=== PATIENT | male | born 1960 | race African-American/Black ===

== ENCOUNTER 2020-06-02 17:54 | Emergency (ER) | payer OTHER ==
[2020-06-02] MEDS ORDERED: Ketorolac Tromethamine 30 MG/ML VIAL ONE (20:07)
== END 2020-06-02 20:24 ==
LOC: ERS 17:54
DX: M25.551 Pain in right hip (principal); E11.9 Type 2 diabetes mellitus without complications; I10 Essential (primary) hypertension; F17.210 Nicotine dependence, cigarettes, uncomplicated; W18.2XXA Fall in (into) shower or empty bathtub, initial encounter
CPT/HCPCS: 72192; 96374; J1885

== ENCOUNTER 2020-08-01 09:40 | Inpatient (IN) | payer OTHER ==
[2020-08-01] MEDS ORDERED: Dextrose 50% Abboject 50 ML SYRINGE ONE ×2 (10:06→11:21)
[2020-08-01] MEDS ORDERED: Dextrose 10% in Water 500 ML IV SCH (11:30)
[2020-08-01 13:59] LABS: SARS-CoV-2 NAA Rapid Test Not Detected (NotDetected)
[2020-08-01] MEDS ORDERED: Communication Order-Pharmacy FS SCH (14:24)
[2020-08-01] MEDS ORDERED: hydrALAZINE 20 MG/ML VIAL SLOW IVP PRN (14:24)
[2020-08-01] MEDS ORDERED: Labetalol HCl 100 MG/20 ML VIAL SLOW IVP PRN (14:24)
[2020-08-01] MEDS ORDERED: niCARdipine 25 MG in Sodium Chloride 0.9% 250 ML 240 ML IVPB PRN (14:24)
[2020-08-02] MEDS ORDERED: Dextrose 5% in Water 1,000 ML IV PRN (00:30)
[2020-08-02] MEDS ORDERED: Dextrose 50% Abboject 50 ML SYRINGE IVP PRN (00:30)
[2020-08-02] MEDS: Insulin Regular 300 UNITS/3 ML VIAL SC PRN ×4 (00:37→21:50)
[2020-08-02 04:50] LABS: #Basophils 0.1 thou/uL (0.0-0.2); #Eosinphils 0.3 thou/uL (0.0-0.7); #Lymphocytes 2.3 thou/uL (1.20-3.40); #Monocytes 0.7 thou/uL (0.11-0.59); #Neutrophils 6.1 thou/uL (1.40-6.50); %Lymphocytes 24.1 % (21.0-51.0); %Monocytes 7.7 % (0.0-10.0); %Neutrophils 64.2 % (42.0-75.0); Hemoglobin 12.3 g/dL (14.0-18.0); Mean Corpuscular HGB CONC 34.5 g/dL (32.0-36.0); Mean Corpuscular Volume 84.1 fL (78.0-98.0); Mean Platelet Volume 7.6 fL (7.4-10.4); Platelet Count 243 thou/uL (130-400); RBC Distribution Width 12.1 % (11.5-14.5); Red Blood Cell (RBC) Count 4.26 mill/uL (4.70-6.10); White Blood Cell (WBC) Count 9.6 thou/uL (4.8-10.8)
[2020-08-02 05:19] LABS: Anion Gap 11 mmol/L (10-20); BUN (Urea Nitrogen) 13 mg/dL (8.4-25.7); Calc. Creatinine Clearance 102 mL/min (70-130); Carbon Dioxide 28 mmol/L (22-29); Cardiac Risk 5.5 (Less than 4.5); Chloride 104 mmol/L (98-107); Cholesterol 181 mg/dl (< 200 Desired); Glucose 212 mg/dL (70-105); HDL Cholesterol 33 mg/dL (>60 Neg Risk); LDL Cholesterol, Calculated 113 mg/dL; Potassium 4.6 mmol/L (3.5-5.1); Sodium 138 mmol/L (136-145); Triglycerides 174 mg/dL (Less than 150)
[2020-08-02] MEDS: Pantoprazole 40 MG VIAL IVP SCH (08:51)
[2020-08-02] MEDS: Divalproex Sodium 250 MG (DR) TAB PO SCH (08:51)
[2020-08-02] MEDS: Lisinopril 10 MG TAB PO SCH (08:52)
[2020-08-02] MEDS: Acetaminophen 325 MG TAB PO PRN (11:13)
[2020-08-02] MEDS: Enoxaparin Sodium 40 MG/0.4 ML SYRINGE SC SCH (21:00)
[2020-08-02] MEDS: Aspirin 325 mg Enteric Coated Tablet PO SCH (21:00)
[2020-08-03] MEDS: Lisinopril 10 MG TAB PO SCH (10:21)
[2020-08-03] MEDS: Divalproex Sodium 250 MG (DR) TAB PO SCH (10:21)
[2020-08-03] MEDS: Pantoprazole 40 MG VIAL IVP SCH (10:21)
[2020-08-03] MEDS: Insulin Regular 300 UNITS/3 ML VIAL SC PRN (11:19)
[2020-08-03] MEDS: Acetaminophen 325 MG TAB PO PRN (14:52)
[2020-08-03] MEDS: Enoxaparin Sodium 40 MG/0.4 ML SYRINGE SC SCH (21:41)
[2020-08-03] MEDS: Aspirin 325 mg Enteric Coated Tablet PO SCH (21:41)
[2020-08-04] MEDS: Divalproex Sodium 250 MG (DR) TAB PO SCH (09:15)
[2020-08-04] MEDS: Lisinopril 10 MG TAB PO SCH (09:15)
[2020-08-04] MEDS: Acetaminophen 325 MG TAB PO PRN (09:16)
[2020-08-04 09:27] LABS: #Basophils 0.1 thou/uL (0.0-0.2); #Eosinphils 0.3 thou/uL (0.0-0.7); #Lymphocytes 2.1 thou/uL (1.20-3.40); #Monocytes 0.6 thou/uL (0.11-0.59); %Basophils 0.9 % (0.0-1.0); %Eosinophils 3.7 % (0.0-10.0); %Lymphocytes 25.8 % (21.0-51.0); %Monocytes 7.5 % (0.0-10.0); %Neutrophils 62.1 % (42.0-75.0); Hemoglobin 13.8 g/dL (14.0-18.0); Mean Corpuscular HGB CONC 33.5 g/dL (32.0-36.0); Mean Corpuscular Hemoglobin 28.3 pg (27.0-31.0); Mean Corpuscular Volume 84.5 fL (78.0-98.0); Mean Platelet Volume 7.6 fL (7.4-10.4); Platelet Count 249 thou/uL (130-400); RBC Distribution Width 12.5 % (11.5-14.5); Red Blood Cell (RBC) Count 4.87 mill/uL (4.70-6.10)
[2020-08-04] MEDS: Insulin Regular 300 UNITS/3 ML VIAL SC PRN (12:45)
[2020-08-04] MEDS ORDERED: Amoxicillin/Potassium Clav 875 MG TAB PO SCH (16:15)
[2020-08-04] MEDS: Aspirin 81 mg Enteric Coated Tablet PO SCH (20:38)
[2020-08-04] MEDS: Enoxaparin Sodium 40 MG/0.4 ML SYRINGE SC SCH (20:38)
[2020-08-05] MEDS: Lisinopril 10 MG TAB PO SCH (08:37)
[2020-08-05] MEDS: Divalproex Sodium 250 MG (DR) TAB PO SCH (08:37)
[2020-08-05] MEDS ORDERED: Amoxicillin/Potassium Clav 875 MG TAB PO SCH (09:00)
[2020-08-05] MEDS ORDERED: Ciprofloxacin 0.2% Otic (0.25ML CONTAINER) R EAR SCH (12:15)
[2020-08-05] MEDS: Insulin Regular 300 UNITS/3 ML VIAL SC PRN ×3 (12:56→22:09)
[2020-08-05] MEDS: traMADol HCl 50 MG TAB PO PRN ×2 (12:58→19:47)
[2020-08-05] MEDS: Enoxaparin Sodium 40 MG/0.4 ML SYRINGE SC SCH (22:08)
[2020-08-05] MEDS: Aspirin 81 mg Enteric Coated Tablet PO SCH (22:08)
[2020-08-05] MEDS: Ciprofloxacin 0.2% Otic (0.25ML CONTAINER) R EAR SCH (22:09)
[2020-08-06] MEDS: Divalproex Sodium 250 MG (DR) TAB PO SCH (09:57)
[2020-08-06] MEDS: Lisinopril 10 MG TAB PO SCH (09:57)
[2020-08-06] MEDS: Ciprofloxacin 0.2% Otic (0.25ML CONTAINER) R EAR SCH ×2 (09:57→21:38)
[2020-08-06] MEDS: Insulin Regular 300 UNITS/3 ML VIAL SC PRN (12:11)
[2020-08-06] MEDS: Acetaminophen 325 MG TAB PO PRN (21:37)
[2020-08-06] MEDS: Enoxaparin Sodium 40 MG/0.4 ML SYRINGE SC SCH (21:38)
[2020-08-06] MEDS: Atorvastatin Calcium 20 MG TAB PO SCH (21:38)
[2020-08-06] MEDS: Aspirin 81 mg Enteric Coated Tablet PO SCH (21:38)
[2020-08-07] MEDS: Divalproex Sodium 250 MG (DR) TAB PO SCH (08:21)
[2020-08-07] MEDS: Ciprofloxacin 0.2% Otic (0.25ML CONTAINER) R EAR SCH ×2 (08:21→21:13)
[2020-08-07] MEDS: Lisinopril 10 MG TAB PO SCH ×2 (08:21→21:12)
[2020-08-07] MEDS: diphenhydrAMINE 25 MG CAP PO SCH ×2 (15:42→21:13)
[2020-08-07] MEDS: Atorvastatin Calcium 20 MG TAB PO SCH (21:12)
[2020-08-07] MEDS: Terazosin HCl 5 MG CAP PO SCH (21:12)
[2020-08-07] MEDS: Enoxaparin Sodium 40 MG/0.4 ML SYRINGE SC SCH (21:13)
[2020-08-07] MEDS: NPH, Human Insulin Isophane 300 UNIT/3 ML VIAL SC SCH (21:14)
[2020-08-08] MEDS: Acetaminophen 325 MG TAB PO PRN (03:57)
[2020-08-08] MEDS ORDERED: Sodium Chloride 0.9% 500 ML IV SCH (04:00)
[2020-08-08] MEDS: Lisinopril 10 MG TAB PO SCH ×2 (08:17→20:46)
[2020-08-08] MEDS: diphenhydrAMINE 25 MG CAP PO SCH ×3 (08:19→20:48)
[2020-08-08] MEDS: Aspirin 81 mg Enteric Coated Tablet PO SCH (08:19)
[2020-08-08] MEDS: Divalproex Sodium 250 MG (DR) TAB PO SCH (08:19)
[2020-08-08] MEDS: Fluticasone Propionate Nasal Spray 16 gm Bottle NASAL SCH (08:19)
[2020-08-08] MEDS: NPH, Human Insulin Isophane 300 UNIT/3 ML VIAL SC SCH ×2 (08:40→20:42)
[2020-08-08] MEDS: Ciprofloxacin 0.2% Otic (0.25ML CONTAINER) R EAR SCH ×2 (08:40→20:43)
[2020-08-08] MEDS ORDERED: Amlodipine 10 MG TAB PO SCH (09:00)
[2020-08-08] MEDS ORDERED: Hydrochlorothiazide 25 MG TAB PO SCH (09:00)
[2020-08-08] MEDS: Enoxaparin Sodium 40 MG/0.4 ML SYRINGE SC SCH (20:42)
[2020-08-08] MEDS: Atorvastatin Calcium 20 MG TAB PO SCH (20:45)
[2020-08-08] MEDS: Terazosin HCl 5 MG CAP PO SCH (20:45)
[2020-08-09] MEDS: Fluticasone Propionate Nasal Spray 16 gm Bottle NASAL SCH (09:52)
[2020-08-09] MEDS: Lisinopril 10 MG TAB PO SCH (09:52)
[2020-08-09] MEDS: Aspirin 81 mg Enteric Coated Tablet PO SCH (09:53)
[2020-08-09] MEDS: diphenhydrAMINE 25 MG CAP PO SCH ×3 (09:53→20:21)
[2020-08-09] MEDS: Divalproex Sodium 250 MG (DR) TAB PO SCH (09:53)
[2020-08-09] MEDS: NPH, Human Insulin Isophane 300 UNIT/3 ML VIAL SC SCH ×2 (09:54→20:21)
[2020-08-09] MEDS: Ciprofloxacin 0.2% Otic (0.25ML CONTAINER) R EAR SCH ×2 (11:44→20:21)
[2020-08-09] MEDS: Insulin Regular 300 UNITS/3 ML VIAL SC PRN ×2 (12:34→17:30)
[2020-08-09] MEDS: Terazosin HCl 5 MG CAP PO SCH (20:20)
[2020-08-09] MEDS: Enoxaparin Sodium 40 MG/0.4 ML SYRINGE SC SCH (20:20)
[2020-08-09] MEDS: Atorvastatin Calcium 20 MG TAB PO SCH (20:21)
[2020-08-10] MEDS: diphenhydrAMINE 25 MG CAP PO SCH ×3 (09:54→20:24)
[2020-08-10] MEDS: Aspirin 81 mg Enteric Coated Tablet PO SCH (09:54)
[2020-08-10] MEDS: Divalproex Sodium 250 MG (DR) TAB PO SCH (09:54)
[2020-08-10 09:56] VITALS: BMI 38.0
[2020-08-10] MEDS: NPH, Human Insulin Isophane 300 UNIT/3 ML VIAL SC SCH ×2 (11:00→20:40)
[2020-08-10] MEDS: Insulin Regular 300 UNITS/3 ML VIAL SC PRN (11:00)
[2020-08-10] MEDS: Ciprofloxacin 0.2% Otic (0.25ML CONTAINER) R EAR SCH ×2 (15:28→20:24)
[2020-08-10] MEDS: Fluticasone Propionate Nasal Spray 16 gm Bottle NASAL SCH (15:29)
[2020-08-10] MEDS: Atorvastatin Calcium 20 MG TAB PO SCH (20:24)
[2020-08-10] MEDS: Enoxaparin Sodium 40 MG/0.4 ML SYRINGE SC SCH (20:24)
[2020-08-10] MEDS: Terazosin HCl 5 MG CAP PO SCH (20:24)
[2020-08-11] MEDS: Divalproex Sodium 250 MG (DR) TAB PO SCH (09:18)
[2020-08-11] MEDS: diphenhydrAMINE 25 MG CAP PO SCH ×3 (09:18→20:16)
[2020-08-11] MEDS: Aspirin 81 mg Enteric Coated Tablet PO SCH (09:18)
[2020-08-11] MEDS: NPH, Human Insulin Isophane 300 UNIT/3 ML VIAL SC SCH ×2 (09:22→20:18)
[2020-08-11] MEDS: Ciprofloxacin 0.2% Otic (0.25ML CONTAINER) R EAR SCH ×2 (10:15→20:17)
[2020-08-11] MEDS: Fluticasone Propionate Nasal Spray 16 gm Bottle NASAL SCH (10:15)
[2020-08-11] MEDS: Terazosin HCl 5 MG CAP PO SCH (20:16)
[2020-08-11] MEDS: Atorvastatin Calcium 20 MG TAB PO SCH (20:16)
[2020-08-11] MEDS: Enoxaparin Sodium 40 MG/0.4 ML SYRINGE SC SCH (20:16)
[2020-08-12] MEDS: Divalproex Sodium 250 MG (DR) TAB PO SCH (10:22)
[2020-08-12] MEDS: diphenhydrAMINE 25 MG CAP PO SCH ×3 (10:23→23:05)
[2020-08-12] MEDS: Aspirin 81 mg Enteric Coated Tablet PO SCH (10:23)
[2020-08-12] MEDS: NPH, Human Insulin Isophane 300 UNIT/3 ML VIAL SC SCH ×2 (10:24→23:09)
[2020-08-12] MEDS: Fluticasone Propionate Nasal Spray 16 gm Bottle NASAL SCH (10:25)
[2020-08-12] MEDS: Ciprofloxacin 0.2% Otic (0.25ML CONTAINER) R EAR SCH ×2 (10:25→23:06)
[2020-08-12] MEDS: Insulin Regular 300 UNITS/3 ML VIAL SC PRN (18:09)
[2020-08-12] MEDS: Atorvastatin Calcium 20 MG TAB PO SCH (23:06)
[2020-08-12] MEDS: Enoxaparin Sodium 40 MG/0.4 ML SYRINGE SC SCH (23:06)
[2020-08-12] MEDS: Terazosin HCl 5 MG CAP PO SCH (23:06)
[2020-08-13] MEDS: Fluticasone Propionate Nasal Spray 16 gm Bottle NASAL SCH (09:59)
[2020-08-13] MEDS: Ciprofloxacin 0.2% Otic (0.25ML CONTAINER) R EAR SCH ×2 (10:00→20:19)
[2020-08-13] MEDS: Divalproex Sodium 250 MG (DR) TAB PO SCH (10:01)
[2020-08-13] MEDS: diphenhydrAMINE 25 MG CAP PO SCH ×3 (10:01→20:18)
[2020-08-13] MEDS: Aspirin 81 mg Enteric Coated Tablet PO SCH (10:01)
[2020-08-13] MEDS: NPH, Human Insulin Isophane 300 UNIT/3 ML VIAL SC SCH ×2 (10:08→20:20)
[2020-08-13] MEDS: Insulin Regular 300 UNITS/3 ML VIAL SC PRN (11:39)
[2020-08-13] MEDS: Acetaminophen 325 MG TAB PO PRN (20:16)
[2020-08-13] MEDS: Atorvastatin Calcium 20 MG TAB PO SCH (20:18)
[2020-08-13] MEDS: Enoxaparin Sodium 40 MG/0.4 ML SYRINGE SC SCH (20:19)
[2020-08-14] MEDS: Insulin Regular 300 UNITS/3 ML VIAL SC PRN ×2 (06:39→11:18)
[2020-08-14] MEDS: Fluticasone Propionate Nasal Spray 16 gm Bottle NASAL SCH (09:02)
[2020-08-14] MEDS: Ciprofloxacin 0.2% Otic (0.25ML CONTAINER) R EAR SCH ×2 (09:04→21:38)
[2020-08-14] MEDS: Aspirin 81 mg Enteric Coated Tablet PO SCH (09:04)
[2020-08-14] MEDS: Divalproex Sodium 250 MG (DR) TAB PO SCH (09:04)
[2020-08-14] MEDS: diphenhydrAMINE 25 MG CAP PO SCH ×3 (09:04→21:46)
[2020-08-14] MEDS: NPH, Human Insulin Isophane 300 UNIT/3 ML VIAL SC SCH ×2 (09:07→21:52)
[2020-08-14] MEDS ORDERED: Milk Of Magnesia 30 ML UDCUP PO PRN (14:44)
[2020-08-14] MEDS ORDERED: Polyethylene Glycol 3350 17 GM Packet PO PRN (14:45)
[2020-08-14 20:00] VITALS: BP 119/64; TEMP 97.8
[2020-08-14] MEDS ORDERED: Senokot S 8.6-50 MG TAB PO SCH (21:00)
[2020-08-14] MEDS: Enoxaparin Sodium 40 MG/0.4 ML SYRINGE SC SCH (21:47)
[2020-08-14] MEDS: Atorvastatin Calcium 20 MG TAB PO SCH (21:48)
== END 2020-08-14 22:15 | DRG 65 ==
LOC: ERS 09:40 → EEVIPCON 09:40 → CCU 12:45 → 2SE 08-02 18:41
PROVIDERS: ADMIT Internal Medicine; ATTEND Family Medicine
DX: I63.89 Other cerebral infarction (principal); G81.91 Hemiplegia, unspecified affecting right dominant side; E11.649 Type 2 diabetes mellitus with hypoglycemia without coma; R47.01 Aphasia; Z20.822 Contact with and (suspected) exposure to COVID-19; F20.9 Schizophrenia, unspecified; F31.9 Bipolar disorder, unspecified; K21.9 Gastro-esophageal reflux disease without esophagitis; I10 Essential (primary) hypertension; R29.714 NIHSS score 14; E66.9 Obesity, unspecified; M16.10 Unilateral primary osteoarthritis, unspecified hip; E78.5 Hyperlipidemia, unspecified; H91.90 Unspecified hearing loss, unspecified ear; F17.210 Nicotine dependence, cigarettes, uncomplicated; D64.9 Anemia, unspecified; G93.89 Other specified disorders of brain; H66.91 Otitis media, unspecified, right ear; M79.5 Residual foreign body in soft tissue; R47.1 Dysarthria and anarthria; I95.9 Hypotension, unspecified; Z79.899 Other long term (current) drug therapy; Z92.82 Status post administration of tPA (rtPA) in a different facility within the last 24 hours prior to admission to current facility; Z91.010 Allergy to peanuts; Z91.013 Allergy to seafood; Z79.82 Long term (current) use of aspirin; Z79.4 Long term (current) use of insulin; Z68.37 Body mass index [BMI] 37.0-37.9, adult
CPT/HCPCS: 0240U; 36415; 36416; 51702; 70450; 80048; 80061; 85025; 93005; 93306; 95712; 95819; 95957; 96374; 96376; C9113; J1650; J1815; Q0163